=== PATIENT | female | born 1975 | race African-American/Black ===

== ENCOUNTER → 2017-01-20 | Outpatient (CLI) | payer BC, OTHER ==
[~2017-01-20] MED LIST: DOXYCYCLINE 10100 MG PO; FERRO-TIME325 MG PO; FLONASE 0.05%50 MCG NASAL; IBUPROFEN 600600 M1 PO; NAPROSYN500 MG PO; NORCO 5-325 TA1 EACH PO; NORVASC10 MG PO; PERCOCET 5-3251 EACH PO; PREDNISONE 20 M20 MG PO; PROVERA10 MG PO; TESSALON PERLE100 MG PO; ZOLOFT50 MG PO
== END ==
LOC: PET 08:51
DX: R91.1 Solitary pulmonary nodule (principal)